=== PATIENT | male | born 1955 | race Caucasian/White ===

== ENCOUNTER 2019-04-14 09:07 | Outpatient (CLI) | payer BC ==
[2019-04-14] MEDS ORDERED: OLME20TA17 PO (09:47)
[2019-04-14] MEDS ORDERED: ROSU40TA PO (09:47)
[2019-04-14] MEDS ORDERED: IMITREX (10:07)
[2019-04-14 10:23] LABS: ALANINE AMINOTRANSFERASE 36 U/L (12-78); ALBUMIN 4.4 g/dL (3.4-5.0); ANION GAP 6 mmol/L (5-15); CALCIUM 9.4 mg/dL (8.5-10.1); CHLORIDE 108 mmol/L (98-107); CREATININE 1.18 mg/dL (0.7-1.3)
[2019-04-14 10:25] LABS: ALKALINE PHOSPHATASE 74 U/L (45-117); BILIRUBIN,TOTAL 0.8 mg/dL (0.2-1.0); TOTAL PROTEIN 7.6 g/dL (6.4-8.2)
[2019-05-10] MEDS ORDERED: HYDR-3240 PO (19:57)
== END 2019-04-14 23:59 | disposition home or self-care (01) ==
LOC: STAR 09:07
PROVIDERS: ATTEND Orthopaedic Surgery
DX: Z01.818 Encounter for other preprocedural examination (principal); G56.02 Carpal tunnel syndrome, left upper limb; I10 Essential (primary) hypertension; M17.0 Bilateral primary osteoarthritis of knee; Z96.651 Presence of right artificial knee joint
CPT/HCPCS: 36415; 80053; 93005

== ENCOUNTER 2019-04-26 13:52 | Day surgery (SDC) | payer BC ==
[~2019-04-26] VITALS: Ht 185.4 cm; Wt 122.0 kg
[2019-04-26 14:17] VITALS: BP 140/92
== END 2019-04-26 18:50 | disposition home or self-care (01) ==
LOC: OR 13:52
PROVIDERS: ATTEND Orthopaedic Surgery
DX: G56.01 Carpal tunnel syndrome, right upper limb (principal); I10 Essential (primary) hypertension; E78.5 Hyperlipidemia, unspecified; E66.9 Obesity, unspecified; Z68.36 Body mass index [BMI] 36.0-36.9, adult; Z72.89 Other problems related to lifestyle
CPT/HCPCS: 64721; J0690; J1100; J2250; J2405; J2704; J3010; J3490; J0171